=== PATIENT | female | born 1975 | race Caucasian/White ===

== ENCOUNTER 2023-02-25 21:50 | Outpatient (REF) | payer BC, SELFPAY ==
[2023-03-01 11:09] LABS: Age Gdln ACOG Testing Note (.); HPV Aptima Negative (Negative); IGP, Aptima HPV, rfx 16/18,45 Note (.)
== END 2023-02-25 21:51 | disposition home or self-care (01) ==
LOC: LAB 21:50
PROVIDERS: Visit Provider Obstetrics & Gynecology
DX: Z01.419 Encounter for gynecological examination (general) (routine) without abnormal findings (principal)
CPT/HCPCS: 87624; G0145

== ENCOUNTER 2023-02-26 11:38 | Outpatient (OUT) | payer BC, SELFPAY ==
[2023-02-26 12:06] LABS: Basophils Absolute Auto 0.1 10^3/uL (0.0-0.1); Basophils Percent Auto 0.8 % (0.2-2.0); Eosinophils Absolute Auto 0.2 10^3/uL (0.0-0.7); Eosinophils Percent Auto 2.4 % (0.9-7.0); Hematocrit 43.3 % (36.0-48.0); Hemoglobin 14.4 g/dL (12.0-16.0); Immature Granulocytes Abs Auto 0.03 10^3/uL (0.00-0.03); Immature Granulocytes Pct Auto 0.3 % (0.0-0.5); Lymphocytes Percent Auto 22.4 % (20.5-60.0); Mean Corpuscular HGB Conc 33.3 g/dL (29.9-35.2); Mean Corpuscular Hemoglobin 30.8 pg (26.7-34.0); Mean Corpuscular Volume 92.5 fL (81.0-99.0); Mean Platelet Volume 9.8 fL (9.5-13.5); Monocytes Absolute Auto 0.6 10^3/uL (0.3-0.8); Monocytes Percent Auto 6.6 % (1.7-12.0); Neutrophils Absolute Auto 5.9 10^3/uL (1.4-6.5); Neutrophils Percent Auto 67.5 % (43.0-75.0); Platelet Count 348 10^3/uL (150-450); Red Blood Count 4.68 10^6/uL (4.20-5.40); Red Cell Distribution Width 12.9 % (11.0-15.0); White Blood Count 8.8 10^3/uL (4.0-11.0)
[2023-02-26 12:30] LABS: Free T4 0.88 ng/dL (0.76-1.46)
[2023-02-27 04:16] LABS: FSH 71.6 mIU/mL (.)
== END 2023-02-26 11:39 | disposition home or self-care (01) ==
PROVIDERS: PCP Nurse Practitioner; Visit Provider Obstetrics & Gynecology
DX: E34.9 Endocrine disorder, unspecified (principal)
CPT/HCPCS: 36415; 83001; 84439; 84443; 85025

== ENCOUNTER 2023-03-05 09:39 | Outpatient (OUT) | payer BC, SELFPAY ==
--- NOTE | 2023-03-05 09:46 | MM_ITS ---
Patient: ROBER RAHMAN Exam Date: 03/05/2023 : 1975 Gender:F Ordering : DR Dano Henriquez . Admission #: [id number] Family : PARMINDER GABRIEL Order #: [id number] CLICK HERE TO VIEW EXAM RADIOLOGY REPORT PROCEDURE: MM TOMOSYNTHESIS SCREENING BI COMPARISON: MG MAMM SCREEN 3D ASHU CAD, 06/28/2021. MG MAMM SCREEN ASHU W CAD, 03/10/2020. MG MAMM RT DIAG W CAD, 05/08/2017. MG MAMM SCREEN ASHU W CAD, 09/19/2016. INDICATIONS: Screening mammogram Z12.31 Calculator Name NCI Breast Cancer Risk Assessment Tool 5 Year Breast Cancer Risk 1.10% Lifetime Breast Cancer Risk 11.40% Personal Breast Cancer No Personal Ovarian Cancer No Treatments None Family Cancers Aunt-paternal with breast cancer at age ~70. LOCATION: [facility] BREAST COMPOSITION: Scattered areas fibroglandular density. FINDINGS: DIAGNOSTIC CATEGORY 1--NEGATIVE. RIGHT BREAST: No significant suspicious finding. No significant change has occurred. LEFT BREAST: No significant suspicious finding. No significant change has occurred. RECOMMENDATIONS: ROUTINE MAMMOGRAM AND CLINICAL EVALUATION IN 12 MONTHS. PLEASE NOTE: A NORMAL MAMMOGRAM DOES NOT EXCLUDE THE POSSIBILITY OF BREAST CANCER. A CLINICALLY SUSPICIOUS PALPABLE LUMP SHOULD BE BIOPSIED. Dictated by: Nick Vicente M.D. on 03/05/2023 at 16:12 Approved by: Nick Vicente M.D. on 03/05/2023 at 16:14
--- NOTE | 2023-03-05 09:47 | US_ITS ---
The [address] [address] Patient Name: ROBER RAHMAN MRN: [id number] date: 1975 Sex: F Assigned Patient Location: US Current Patient Location: Accession/Order Number: [id number] Exam Date: 03/05/2023 09:48 Report Date: 03/05/2023 11:20 At the request of: ASUNCION SANDOVAL Procedure: US pelvis w/ transvaginal EXAM: US pelvis w/ transvaginal HISTORY: Premature menopause E28.319 COMPARISON: None. TECHNIQUE: Real-time transabdominal and transvaginal imaging of the pelvis. Findings: The uterus measures 5.3 x 4.1 x 2.6 cm and is retroverted. The parenchyma is heterogeneous. No focal intrahepatic mass. The endometrium measures 0.3 cm thick. No fluid within the endometrial canal. Small endometrial calcification. The bilateral ovaries are not visualized due to overlying bowel gas. No adnexal mass or free pelvic fluid. US/US pelvis w/ transvaginal IMPRESSION: 1. Small endometrial calcification is nonspecific but may relate to prior infection or inflammation. 2. Nonvisualization of the bilateral ovaries. Electronically authenticated by: TABATHA GONSALVES Date: 03/05/2023 11:20
== END 2023-03-05 09:40 | disposition home or self-care (01) ==
LOC: US 09:39
PROVIDERS: PCP Nurse Practitioner; Visit Provider Obstetrics & Gynecology
DX: E28.319 Asymptomatic premature menopause (principal); Z12.31 Encounter for screening mammogram for malignant neoplasm of breast; Z80.3 Family history of malignant neoplasm of breast
CPT/HCPCS: 76830; 76856; 77063; 77067

== ENCOUNTER 2024-06-18 20:37 | Outpatient (REF) | payer BC, SELFPAY | END 2024-06-18 20:38 | disposition home or self-care (01) | LOC: LAB 20:37 | PROVIDERS: PCP Nurse Practitioner; Visit Provider Physician Assistant | DX: Z01.419 Encounter for gynecological examination (general) (routine) without abnormal findings (principal) | CPT/HCPCS: 87624; 88175 ==

== ENCOUNTER 2024-09-11 08:01 | Outpatient (OUT) | payer BC, SELFPAY ==
--- NOTE | 2024-09-11 | MM_ITS ---
Patient Name: ROBER RAHMAN MR#: [id number] : 1975 Exam Date: 09/11/2024 Ordering Doctor: ZACKARY Stiles . RADIOLOGY REPORT PROCEDURE: MM TOMOSYNTHESIS SCREENING BI COMPARISON: MM TOMOSYNTHESIS SCREENING BI, 03/05/2023. MG MAMM SCREEN 3D ASHU CAD, 06/28/2021. MG MAMM SCREEN ASHU W CAD, 03/10/2020. MG MAMM SCREEN ASHU W CAD, 09/19/2016. INDICATIONS: screen for breast cancer Calculator Name NCI Breast Cancer Risk Assessment Tool 5 Year Breast Cancer Risk 1.20% Lifetime Breast Cancer Risk 11.10% Personal Breast Cancer No Personal Ovarian Cancer No Treatments None Family Cancers Aunt-paternal with breast cancer at age ~70. LOCATION: [facility] BREAST COMPOSITION: There are scattered areas of fibroglandular density. FINDINGS: DIAGNOSTIC CATEGORY 1--NEGATIVE. RIGHT BREAST: No significant suspicious finding. LEFT BREAST: No significant suspicious finding. RECOMMENDATIONS: ROUTINE MAMMOGRAM AND CLINICAL EVALUATION IN 12 MONTHS. PLEASE NOTE: A NORMAL MAMMOGRAM DOES NOT EXCLUDE THE POSSIBILITY OF BREAST CANCER. A CLINICALLY SUSPICIOUS PALPABLE LUMP SHOULD BE BIOPSIED. Dictated by: Be Webber DO on 09/11/2024 at 15:47 Approved by: Be Webber DO on 09/11/2024 at 15:51
--- OUTSIDE RECORDS SUMMARY | 2024-09-11 08:08 | XMS_ITS | CCD ---
Author Organization [facility] Care Team Providers Care Cinder Worker Name Role Phone DR ROSEMARIE MAGDALENO Admitting Unavailable STEFANIA, DR CANDI Fisher Primary Care Unavailable RASTA, DR [place] Attending Unavailable RASTA, DR [place] Consulting Unavailable ZIIVETT, DR NICK Erickson Consulting Unavailable STEFANIA, DR CANDI Fisher Primary Care Unavailable RASTA, DR [place] Attending Unavailable RASTA, DR [place] Consulting Unavailable RASTA, DR [place] Admitting Unavailable Bhakti Crocker Unavailable Brooklyn Fischer Unavailable JANNET Fischer Attending Provider NO FAMILY, PHYSICIAN Primary Care Provider Unava ilable Brooklyn Fischer Attending Unavailable Brooklyn Fischer Admitting Unavailable NO FAMILY, PHYSICIAN Primary Care Unavailable Bhakti Crocker Attending Unavailable Bhakti Crocker Admitting Unavailable PARMINDER GABRIEL Attending Unavailable JENA GABRIELERIE J Referring Unavailable GABRIEL, PARMINDER J Primary Care Unavailable PARMINDER GABRIEL Attending Unavailable JENA GABRIELERIE J Referring Unavailable GABRIEL, PARMINDER J Primary Care Unavailable GABRIEL, PARMINDER Referring Unavailable GABRIEL, PARMINDER Primary Care Unavailable Unavailable Primary Care Provider UnavailORTEGA Simon Attending Unavailable ORTEGA MANZANARES Attending Unavailable VIDHI LOJA Attending Unavailable Allergies Allergy Classification Reported Allergen(s) Allergy Type Date of Onset Reaction(s) Facility (2 sources) penicillAMINE Drug Allergy [place] Other (6 sources) Penicillin; Translations: [PENICILLIN G] Drug Allergy 3 [facility] Medications Current Medications Medication Drug Class(es) Dates Sig (Normalized) Sig (Original) citalopram 40 mg oral tablet (5 sources) Serotonin Reuptake Inhibitor Start: 12-26-2022 take 1 tablet by mouth in the morning citalopram (CeleXA) 40 MG tablet Take 40 mg by mouth in the morning. 12/26/2022 Active take 0.5 tablet by m outh every twenty-four hours CeleXA 40 MG 0.5 tablet Orally Once a day Active nitrofurantoin, macrocrystals 25 mg / nitrofurantoin, monohydrate 75 mg oral capsule (2 sources) Nitrofuran Antibacterial Start: 03-18-2022 take 1 capsule by mouth every twelve hours Macrobid 100 MG 1 capsule with food Orally every 12 hrs for 7 days Mar, Active Start: 04-09-2021 take 1 capsule by mo uth every twelve hours Macrobid 100 MG 1 cap(s) Orally bid for 5 day(s) Apr, Active phenazopyridine hydrochloride 200 mg oral tablet (2 sources) Start: 03-18-2022 take 1 tablet by mouth every eight hours Pyridium 200 MG 1 tablet after meals Orally Three times a day for 2 day(s) Mar, Active Start: 04-09-2021 take 1 tablet by loly every eight hours Pyridium 200 MG 1 tablet after meals Orally Three times a day for 2 day(s) Apr, Active triamcinolone acetonide 1 mg/ml topical cream (4 sources) Corticosteroid Start: 10-31-2023 triamcinolone (Kenalog) 0.1 % cream Indications: Hypersensitivity reaction, initial encounter Apply to affected areas, up to twice a day when flared, do not use one the face, groin, or underarms, 30 day supply 80 g 11 10/31/2023 Active Problems Active Problems Problem Classification Problem Date Documented Date Episodic/Chronic Anxiety disorders (3 sources) Panic disorder [episodic paroxysmal anxiety]; Translations: [Anxiety disorder, unspecified] Onset: 07-09-2023 Chronic Immunizations and screening for infectious disease (1 source) Encounter for screening for human papillomavirus (HPV); Translations: [ENC SCREENING HUMAN PAPILLOMAVIRUS] Onset: 06-10-2021 Episodic Mood disorders (1 source) Mood disorders; Translations: [Depression, unspecified] Onset: 07-09-2023 Other screening for suspected conditions (not mental disorders or infectious disease) (10 sources) Encounter for screening mammogram for malignant neoplasm of breast; Translations: [Encounter for screening for malignant neoplasm of cervix] Onset: 06-06-2021 Episodic Residual codes; unclassified (1 source) Family history of malignant neoplasm of breast; Translations: [FAMILY HX MALIG NEOPLASM OF BREAST] Onset: 07-06-2021 Episodic Unclassified (1 source) R30.0 - Dysuria; Translations: [R30.0 - Dysuria] Onset: 04-09-2021 Unclassified (1 source) Annual Exam Onset: 03-10-2024 Urinary tract infections (3 sources) Urinary tract infection, site not specified; Translations: [Acute cystitis with hematuria] Onset: 04-09-2021 Resolved: 03-18-2022 Episodic Past or Other Problems Problem Classification Problem Date Documented Da te Episodic/Chronic Genitourinary symptoms and ill-defined conditions (3 sources) Dysuria; Translations: [Hematuria, unspecified] Onset: 04-09-2021 Resolved: 03-18-2022 Episodic Mycoses (1 source) Candidiasis of skin and nail; Translations: [Candidiasis of skin and nail] Onset: 07-09-2023 Episodic Results Test Name Value Interpretation Reference Range Facility IGP,APTIMA HPV,AGE GDLNon AGE GDLN ACOG TESTING Note . [facility] Comment on above: TESTS RESULT FLAG UN ITS REF RANGE LAB Clinician Provided Cytology Information Source.............Cervix No. of containers..01 ThinPrep Vial Age Algo ACOG Aisha... 30 01 FLAG LEGEND: L-Low Normal,H-High Normal,LL-Alert Low,HH-Alert High <-Panic Low,>-Panic High,A-Abnormal,AA-Critical Abnormal Performed at: 01 =[address] [place] [address] Kathryn Howe MD, HPV APTIMA Negative Negative [facility] Comment on above: This nucleic acid am plification test detects fourteen high- risk HPV types (16,18,31,33,35,39,45,51,52,56,58,59,66,68) without differentiation. Performed at: =[facility], [place] [id number] Delivery Architect: Kathryn Howe MD, Phone: [phone] Performed at: [address] [id number] Delivery Architect: Pacheco Mariano PhD, Phone: [phone] IGP, APTIMA HPV, RFX 16/18,45 Note . [facility] Comment on above: TESTS RESULT FLAG UN ITS REF RANGE LAB DIAGNOSIS: 02 NEGATIVE FOR INTRAEPITHELIAL LESION OR MALIGNANCY. CELLULAR CHANGES ASSOCIATED WITH ATROPHY ARE PRESENT. Specimen adequacy: 02 Satisfactory for evaluation. Endocervical component may not be distinguished in cases of atrophy. Performed by: 02 Maura Moncada, [employer]y Employee (ASCP) . 02 Note: Note 03 The Pap smear is a screening test designed to aid in the detection of premalignant and malignant conditions of the uterine cervix. It is not a diagnostic procedure and should not be used as the sole means of detecting cervical cancer. Both false-positive and false-negative reports do occur. Test Methodology: Note 03 This liquid based ThinPrep(R) pap test was screened with the use of an image guided system. HPV Genotype Reflex Note 02 Criteria not met, HPV Genotype not performed. FLAG LEGEND: L-Low Normal,H-High Normal,LL-Alert Low,HH-Alert High <-Panic Low,>-Panic High,A-Abnormal,AA-Critical Abnormal Performed at: [address] [facility] [address] [place] [address] [place] [address] Pacheco Mariano PhD, 03 [facility] [address] [address] Kathryn Howe MD, BRUSH-SPATULA CERVIX [facility] CBC AND AUTO DIFFon 03-10-20 24 ABSOLUTE BASOPHIL 0.1 X10E9/L Normal 0.0-0.2 [facility] Comment on above: Performed By: #### 2 4331-1, CBCA, HA1C, CMP #### [facility] ([id number]) [address] [address] ABSOLUTE NEUTROPHIL 5.4 X10E9/L Normal 1.5-6.6 [facility] Comment on above: Performed By: #### 2 4331-1, CBCA, HA1C, CMP #### [facility] ([id number]) [address] [address] Basophils/100 WBC (Bld) 0.9 % Normal [facility] Comment on above: Performed By: #### 2 4331-1, CBCA, HA1C, CMP #### [facility] ([id number]) [address] [place] [address] Eosinophils (Bld) [#/Vol] 0.3 10*3/uL Normal 0.0-0.4 [facility] Comment on above: Performed By: #### 2 4331-1, CBCA, HA1C, CMP #### [facility] ([id number]) [address] [address] Eosinophils/100 WBC (Bld) 3.3 % Normal [facility] Comment on above: Performed By: #### 2 4331-1, CBCA, HA1C, CMP #### [facility] ([id number]) [address] [address] [place] [address] Erythrocyte distribution width (RBC) [Ratio] 13.4 % Normal 11.5-15.0 [facility] Comment on above: Performed By: #### 2 4331-1, CBCA, HA1C, CMP #### [facility] ([id number]) [address] [address] Hematocrit (Bld) [Volume fraction] 43.2 % Normal 35-47 [facility] Comment on above: Performed By: #### 2 4331-1, CBCA, HA1C, CMP #### [facility] ([id number]) [address] [address] Hemoglobin (Bld) [Mass/Vol] 14.9 g/dL Normal 11.7-15.5 [facility] Comment on above: Performed By: #### 2 4331-1, CBCA, HA1C, CMP #### [facility] ([id number]) [address] [address] Lymphocytes (Bld) [#/Vol] 2.5 10*3/uL Normal 1.0-3.5 [facility] Comment on above: Performed By: #### 2 4331-1, CBCA, HA1C, CMP #### [facility] ([id number]) [address] [place] [address] Lymphocytes/100 WBC (Bld) 27.9 % Normal [facility] Comment on above: Performed By: #### 2 4331-1, CBCA, HA1C, CMP #### [facility] ([id number]) [address], [address] [place] [address] MCH (RBC) [Entitic mass] 31.5 pg Normal 27-34 [facility] Comment on above: Performed By: #### 2 4331-1, CBCA, HA1C, CMP #### [facility] ([id number]) [address] [place] [address] MCHC (RBC) [Mass/Vol] 34.4 g/dL Normal 32-36 [facility] Comment on above: Performed By: #### 2 4331-1, CBCA, HA1C, CMP #### [facility] ([id number]) [address] [place] [address] MCV (RBC) [Entitic vol] 92 fL Normal 80-100 [facility] Comment on above: Performed By: #### 2 4331-1, CBCA, HA1C, CMP #### [facility] ([id number]) [address] [place] [address] Monocytes (Bld) [#/Vol] 0.5 10*3/uL Normal 0-0.9 [facility] Comment on above: Performed By: #### 2 4331-1, CBCA, HA1C, CMP #### [facility] ([id number]) [address] [place] [address] Monocytes/100 WBC (Bld) 6.2 % Normal [facility] Comment on above: Performed By: #### 2 4331-1, CBCA, HA1C, CMP #### [facility] ([id number]) [address] [place] [address] Neutrophils/100 WBC (Bld) 61.7 % Normal [facility] Comment on above: Performed By: #### 2 4331-1, CBCA, HA1C, CMP #### [facility] ([id number]) [address] [place] [address] Platelet mean volume (Bld) [Entitic vol] 8.4 fL Normal 7-12 [facility] Comment on above: Performed By: #### 2 4331-1, CBCA, HA1C, CMP #### [facility] ([id number]) [address] [facility] [address] [place] [address] Platelets (Bld) [#/Vol] 336 10*3/uL Normal 150-450 [facility] Comment on above: Performed By: #### 2 4331-1, CBCA, HA1C, CMP #### [facility] ([id number]) [address] [place] [address] RBC COUNT 4.72 X10E12/L Normal 3.80-5.20 [facility] Comment on above: Performed By: #### 2 4331-1, CBCA, HA1C, CMP #### [facility] ([id number]) [address] [place] [address] WBC (Bld) [#/Vol] 8.8 10*3/uL Normal 4.0-11.0 [facility] Comment on above: Performed By: #### 2 4331-1, CBCA, HA1C, CMP #### [facility] ([id number]) [address] [place] [address] COMPREHENSIVE METABOLIC PANE [place] 03-10-2024 Albumin [Mass/Vol] 4.6 g/dL Normal 3.2-5.3 [facility] Comment on above: Performed By: #### 2 4331-1, CBCA, HA1C, CMP #### [facility] ([id number]) [address] [place] [address] ALP [Catalytic activity/Vol] 94 U/L Normal 39-130 [facility] Comment on above: Performed By: #### 2 4331-1, CBCA, HA1C, CMP #### [facility] ([id number]) [address] [place] [address] ALT [Catalytic activity/Vol] 20 U/L Normal 0-31 [facility] Comment on above: Performed By: #### 2 4331-1, CBCA, HA1C, CMP #### [facility] ([id number]) [address] [place] [address] Anion gap [Moles/Vol] 13 mmol/L Normal 5-15 [facility] Comment on above: Performed By: #### 2 4331-1, CBCA, HA1C, CMP #### [facility] ([id number]) [address] [place] [address] AST [Catalytic activity/Vol] 18 U/L Normal 0-41 [facility] Comment on above: Performed By: #### 2 4331-1, CBCA, HA1C, CMP #### [facility] ([id number]) [address] [place] [address] Bilirubin [Mass/Vol] 0.5 mg/dL Normal 0.3-1.2 [facility] Comment on above: Performed By: #### 2 4331-1, CBCA, HA1C, CMP #### [facility] ([id number]) [address] [place] [address] Calcium [Mass/Vol] 9.6 mg/dL Normal 8.5-10.5 [facility] Comment on above: Performed By: #### 2 4331-1, CBCA, HA1C, CMP #### [facility] ([id number]) [address] [place] [address] Chloride [Moles/Vol] 105 mmol/L Normal 98-109 [facility] Comment on above: Performed By: #### 2 4331-1, CBCA, HA1C, CMP #### [facility] ([id number]) [address] [address] [place] [address] CO2 [Moles/Vol] 21 mmol/L Low 22-32 [facility] Comment on above: Performed By: #### 2 4331-1, CBCA, HA1C, CMP #### [facility] ([id number]) [address] [address] Creatinine [Mass/Vol] 0.65 mg/dL Normal 0.40-1.00 [facility] Comment on above: Result Comment: METH OD TRACEABLE TO IDMS STANDARD Performed By: #### 2 4331-1, CBCA, HA1C, CMP #### [facility] ([id number]) [address] [address] [place] [address] eGFR (CKD-EPI) NON-RACE DEPENDENT >90 Normal >59 [facility] Comment on above: Result Comment: Reported eGFR is based on the CKD-EPI 2020 equation that does not use a race coefficient. Performed By: #### 2 4331-1, CBCA, HA1C, CMP #### [facility] ([id number]) [address] [address] [place] [address] Glucose [Mass/Vol] 93 mg/dL Normal 65-99 [facility] Comment on above: Performed By: #### 2 4331-1, CBCA, HA1C, CMP #### [facility] ([id number]) [address] [address] [place] [address] Potassium [Moles/Vol] 3.8 mmol/L Normal 3.5-5.0 [facility] Comment on above: Performed By: #### 2 4331-1, CBCA, HA1C, CMP #### [facility] ([id number]) [address] [place] [address] Protein [Mass/Vol] 7.5 g/dL Normal 6.0-8.0 [facility] Comment on above: Performed By: #### 2 4331-1, CBCA, HA1C, CMP #### [facility] ([id number]) [address] [place] [address] Sodium [Moles/Vol] 139 mmol/L Normal 134-146 [facility] Comment on above: Performed By: #### 2 4331-1, CBCA, HA1C, CMP #### [facility] ([id number]) [address] [facility] [address] [place] [address] Urea nitrogen [Mass/Vol] 8 mg/dL Normal 5-23 [facility] Comment on above: Performed By: #### 2 4331-1, CBCA, HA1C, CMP #### [facility] ([id number]) [address] [place] [address] HGB A1C (GLYCO-HGB)on 2023 Glucose [Mass/Vol] 114 mg/dL Normal [facility] Comment on above: Performed By: #### 2 4331-1, CBCA, HA1C, CMP #### [facility] ([id number]) [address] [place] [address] HbA1c (Bld) [Mass fraction] 5.6 % Normal 4.4-5.6 [facility] Comment on above: Result Comment: NOTE ADA Guidelines Result HgbA1c Normal : less than 5.7 % Prediabetes : 5.7 % to 6.4 % Diabetes : > 6.4 % Use with caution in patients with abnormal hemoglobin variants as the half-life of red blood cells and in vivo glycation rates are affected. Performed By: #### 2 4331-1, KEN HAMelani, CMP #### [facility] ([id number]) [address] [place] [address] Lipid 1996 panelon 4 Cholesterol [Mass/Vol] 224 mg/dL High 150-200 [facility] Comment on above: Performed By: #### 2 4331-1, CBCNatalia HA1C, CMP #### [facility] ([id number]) [address] [place] [address] Cholesterol in HDL [Mass/Vol] 60 mg/dL Normal >39 [facility] Comment on above: Result Comment: HDL <40 mg/dL - High Risk HDL > or = 40mg/dL- Desirable HDL >60 mg/dL - Negative Risk Performed By: #### 2 4331-1, KEN HAMelani, CMP #### [facility] ([id number]) [address] [place] [address] Cholesterol in LDL [Mass/Vol] 138 mg/dL High <130 [facility] Comment on above: Result Comment: LDL <100 mg/dL - Desirable LDL >160 mg/dL - High Risk Performed By: #### 2 4331-1, KEN HA1C, CMP #### [facility] ([id number]) [address] [place] [address] Cholesterol in VLDL [Mass/Vol] 26 mg/dL Normal 0-30 [facility] Comment on above: Performed By: #### 2 4331-1, CBCA, HA1C, CMP #### [facility] ([id number]) [address] [place] [address] CHOLESTEROL:HDL 3.7 Normal 1.0-5.0 [facility] Comment on above: Performed By: #### 2 4331-1, CBCA, HA1C, CMP #### [facility] ([id number]) [address] [place] [address] Triglyceride [Mass/Vol] 128 mg/dL Normal 27-150 [facility] Comment on above: Performed By: #### 2 4331-1, CBCA, HA1C, CMP #### [facility] ([id number]) [address] [place] [address] Urinalysis - AUTOMATEDon Appearance (U) CLOUDY [employer] Other Bilirubin Ql (U) Negative [employer] Other Color (U) YELLOW [employer] Other Glucose Ql (U) Negative [employer] Other Hemoglobin Ql (U) TRACE-INTACT [employer] Other Ketones Ql (U) Negative [employer] Other Leukocyte esterase Test strip Ql (U) LARGE [employer] Other Nitrite Ql (U) Negative [employer] Other pH (U) 7.0 [pH] [employer] Other Protein Ql (U) Negative [employer] Other Specific gravity (U) [Rel density] 1.025 [employer] Other Urobilinogen (U) [Mass/Vol] 0.2 mg/dL [employer] Other Urinalysis - AUTOMATED [employer] Other Urine Cultureon 03-18-2022 Bacteria identified Cx Nom (U) Reason for Exam Acute cystitis with hematuria Urine ORGANISM: Escherichia coli (O:ESCCOL) Tangent Count >100,000 Aerobic JUNIOR Charge (NUC86) ---- SUSCEPTIBILITY --- ORGANISM: O:ESCCOL ANTIBIOTIC INTERPRETATION JUNIOR Amikacin S <16 Ampicillin S <8 Ampicillin/Sulbactam S <8/4 Aztreonam S <4 Cefazolin S <2 Cefepime S <2 Ceftazidime S <1 Ceftazidime/Avibactam S <8 Ceftriaxone S <1 Ciprofloxacin S <1 Ertapenem S <0.5 Gentamicin S <4 Levofloxacin S <2 Meropenem S <1 Nitrofurantoin S <32 Piperacillin/Tazobact am S <16 Tetracycline S <4 Tigecycline S <2 Tobramycin S <4 Trimethoprim/Sulfamet hoxazole S <2/38 S = SUSCEPTIBLE I = INTERMEDIATE R = RESISTANT BLANK = DATA NOT AVAILABLE, OR DRUG NOT ADVISABLE OR TESTED R* = RESISTANCE DUE TO EXTENDED SPECTRUM BETA-LACTAMASES ESBL = EXTENDED SPECTRUM BETA-LACTAMASE TFG = THYMIDINE-DEPENDENT STRAIN GUNNER = BETA-LACTAMASE POSITIVE IB = INDUCIBLE BETA-LACTAMASE. APPEARS IN PLACE OF 'S' WITH SPECIES KNOWN TO POSSESS INDUCIBLE BETA-LACTAMASES. POTENTIALLY THEY MAY BECOME RESISTANT TO ALL B-LACTAM DRUGS. PERFORMED BY: [place] [address] PATHOLOGIST PUBLIC INFORMATION SPECIALIST ISIAH NAVA M.D. Normal [facility] Comment on above: Performed By: #### C UU #### [address] MG MAMM SCREEN 3D ASHU CADon 06-28-2021 MG MAMM SCREEN 3D ASHU CAD Patient: KARIN HINDS Exam Date: 06/28/2021 : 1975 Gender:F Ordering : DR ROSEMARIE MAGDALENO . Admission #: [id number] Family : Order #: [id number] CLICK HERE TO VIEW EXAM RADIOLOGY REPORT PROCEDURE: MAMMOGRAM SCREENING 3D BILATERAL CAD COMPARISON: MG MAMM SCREEN ASHU W CAD, 03/10/2020. MG MAMM RT DIAG W CAD, 05/08/2017. INDICATIONS: Screening mammography Calculator Name NCI Breast Cancer Risk Assessment Tool 5 Year Breast Cancer Risk 1.10% Lifetime Breast Cancer Risk 11.80% Personal Breast Cancer No Personal Ovarian Cancer No Treatments None Family Cancers Aunt-paternal with breast cancer at age 70. LOCATION: [facility] BREAST COMPOSITION: Scattered areas fibroglandular density. FINDINGS: DIAGNOSTIC CATEGORY 1--NEGATIVE. RIGHT BREAST: No significant suspicious finding. No significant change has occurred. LEFT BREAST: No significant suspicious finding. No significant change has occurred. RECOMMENDATIONS: ROUTINE MAMMOGRAM AND CLINICAL EVALUATION IN 12 MONTHS. PLEASE NOTE: A NORMAL MAMMOGRAM DOES NOT EXCLUDE THE POSSIBILITY OF BREAST CANCER. A CLINICALLY SUSPICIOUS PALPABLE LUMP SHOULD BE BIOPSIED. Dictated by: Nick Vicente M.D. on 06/28/2021 at 14:17 Approved by: Nick Vicente M.D. on 06/28/2021 at 14:19 Normal [facility] PAP ACOG PANEL 2: 30 to 65on 06-10-2021 . . Normal [facility] Comment on above: Result Comment: Perf ormed at: WB Performed By: #### 4 [id number] #### [facility] [address] [address] [address] Nicole Vazquez Age Gdln ACOG Testing 30-65 Normal [facility] Comment on above: Performed By: #### 4 [id number] #### [facility] [address] [address] [address] Nicole Vazquez DIAGNOSIS: Comment Normal [facility] Comment on above: Result Comment: NEGA TIVE FOR INTRAEPITHELIAL LESION OR MALIGNANCY. CELLULAR CHANGES ASSOCIATED WITH ATROPHY ARE PRESENT. Performed at: WB Performed By: #### 4 [id number] #### [facility] [address] [address] [address] Nicole Vazquez HPV Aptima Negative Normal Negative [facility] Comment on above: Result Comment: This nucleic acid amplification test detects fourteen high-risk HPV types (16,18,31,33,35,39,45,51,52,56,58,59,66,68) without differentiation. Performed at: =G Performed By: #### 4 [id number] #### [facility] [address] [place] [address] Dr. Nicole Vazquez Methodology: Comment Normal [facility] Comment on above: Result Comment: This liquid based ThinPrep(R) pap test was screened with the use of an image guided system. Performed at: WB Performed By: #### 4 [id number] #### [facility] [address] [place] [address] Dr. Nicole Vazquez Note: Comment Normal [facility] Comment on above: Result Comment: The Pap smear is a screening test designed to aid in the detection of premalignant and malignant conditions of the uterine cervix. It is not a diagnostic procedure and should not be used as the sole means of detecting cervical cancer. Both false-positive and false-negative reports do occur. . Performed at: WB Performed By: #### 4 [id number] #### [facility] [address] [place] [address] Dr. Nicole Vazquez Performed by: Comment Normal [facility] Comment on above: Result Comment: Elder Granda, [employer]cher[employer] Employee (ASCP) Performed at: WB Performed By: #### 4 [id number] #### [facility] [address] [place] [address] Dr. Nicole Vazquez Specimen adequacy: Comment Normal [facility] Comment on above: Result Comment: Sati sfactory for evaluation. Endocervical and/or squamous metaplastic cells (endocervical component) are present. Performed at: [facility] Performed By: #### [id number] #### [facility] [address] [place] [address] Dr. Nicole Vazquez Urinalysis - AUTOMATEDon Appearance (U) cloudy [employer] Other Bilirubin Ql (U) Negative [employer] Other Color (U) yellow [employer] Other Glucose Ql (U) Negative [employer] Other Hemoglobin Ql (U) moderate [employer] Other Ketones Ql (U) Negative [employer] Other Leukocyte esterase Test strip Ql (U) large [employer] Other Nitrite Ql (U) Negative [employer] Other pH (U) 6.0 [pH] [employer] Other Protein Ql (U) 100 [employer] Other Specific gravity (U) [Rel density] 1.005 [employer] Other Urobilinogen (U) [Mass/Vol] 0.2 mg/dL [employer] Other Urinalysis - AUTOMATED [employer] Other Urine Cultureon 04-09-2021 Urine Culture >100,000 [employer] Other Urine Culture <16 [employer] Other Urine Culture <8 [employer] Other Urine Culture <4 [employer] Other Urine Culture <2 [employer] Other Urine Culture <1 [employer] Other Urine Culture <0.5 [employer] Other Urine Culture <32 [employer] Other Urine Culture <2/38 [employer] Other Bacteria identified Cx Nom (U) Reason for Exam Dysuria Urine ORGANISM: Escherichia coli (O:ESCCOL) Tangent Count >100,000 Aerobic JUNIOR Charge (NUC86) ---- SUSCEPTIBILITY --- ORGANISM: O:ESCCOL ANTIBIOTIC INTERPRETATION JUNIOR Amikacin S <16 Ampicillin S <8 Ampicillin/Sulbactam S <8/4 Aztreonam S <4 Cefazolin S <2 Cefepime S <2 Ceftazidime S <1 Ceftazidime/Avibactam S <8 Ceftriaxone S <1 Ciprofloxacin S <1 Ertapenem S <0.5 Gentamicin S <4 Levofloxacin S <2 Meropenem S <1 Nitrofurantoin S <32 Piperacillin/Tazobact am S <16 Tetracycline S <4 Tigecycline S <2 Tobramycin S <4 Trimethoprim/Sulfamet hoxazole S <2/38 S = SUSCEPTIBLE I = INTERMEDIATE R = RESISTANT BLANK = DATA NOT AVAILABLE, OR DRUG NOT ADVISABLE OR TESTED R* = RESISTANCE DUE TO EXTENDED SPECTRUM BETA-LACTAMASES ESBL = EXTENDED SPECTRUM BETA-LACTAMASE TFG = THYMIDINE-DEPENDENT STRAIN GUNNER = BETA-LACTAMASE POSITIVE IB = INDUCIBLE BETA-LACTAMASE. APPEARS IN PLACE OF 'S' WITH SPECIES KNOWN TO POSSESS INDUCIBLE BETA-LACTAMASES. POTENTIALLY THEY MAY BECOME RESISTANT TO ALL B-LACTAM DRUGS. PERFORMED BY: [place] [address] PATHOLOGIST PUBLIC INFORMATION SPECIALIST ISIAH NAVA M.D. [facility] Comment on above: Performed By: #### C UU #### [address] Vital Signs Date Time Vital Sign Value Performing Clinician Facility 06-18-2024 09:07-0500 Body mass index (BMI) [Ratio] 38.91 kg/m2 Vidhi RAYMUNDO Work Phone: [facility] 06-18-2024 09:07-0500 Body weight 106.07 kg Vidhi RAYMUNDO Work Phone: [facility] 06-18-2024 09:07-0500 Diastolic blood pressure 82 mm[Hg] Vidhi RAYMUNDO Work Phone: [facility] 06-18-2024 09:07-0500 Systolic blood pressure 130 mm[Hg] Vidhi RAYMUNDO Work Phone: [facility] 09-11-2022 10:15-0400 Body height 162.56 cm Brooklyn Fischer Other [employer] Other 03-18-2022 10:15-0400 Body mass index (BMI) [Ratio] 40.33 kg/m2 Brooklyn Fischer Other [employer] Other 03-18-2022 10:15-0400 Body temperature 99.7 [degF] Brooklyn Fischer Other [employer] Other 03-18-2022 10:15-0400 Body weight 106.6 kg Brooklyn Fischer Other [employer] Other 03-18-2022 10:15-0400 Diastolic blood pressure 67 mm[Hg] Brooklyn Fischer Other [employer] Other 03-18-2022 10:15-0400 Respiratory rate 18 /min Brooklyn Fischer Other [employer] Other 03-18-2022 10:15-0400 SaO2% (BldA) [Mass fraction] 97 % Brooklyn Fischer Other [employer] Other 03-18-2022 10:15-0400 Systolic blood pressure 135 mm[Hg] Brooklyn Fischer Other [employer] Other 04-09-2021 10:50-0400 Body height 162.56 cm Bhakti Crocker Other [employer] Other 04-09-2021 10:50-0400 Body mass index (BMI) [Ratio] 37.76 kg/m2 Bhakti Crocker Other [employer] Other 04-09-2021 10:50-0400 Body temperature 97.9 [degF] Bhakti Crocker Other [employer] Other 04-09-2021 10:50-0400 Body weight 99.79 kg Bhakti Crocker Other [employer] Other 04-09-2021 10:50-0400 Diastolic blood pressure 90 mm[Hg] Bhakti Crocker Other [employer] Other 04-09-2021 10:50-0400 Respiratory rate 18 /min Bhakti Crocker Other [employer] Other 04-09-2021 10:50-0400 SaO2% (BldA) [Mass fraction] 98 % Bhakti Crocker Other [employer] Other 04-09-2021 10:50-0400 Systolic blood pressure 141 mm[Hg] Bhakti Crocker Other [employer] Other Encounters Encounter Date Encounter Type Care Provider Facility Start: 06-18-2024 End: 06-18-2024 Bamboo flowsheet Vidhi RAYMUNDO Work Phone: [facility] Start: 06-18-2024 End: 06-25-2024 Bamboo flowsheet Vidhi RAYMUNDO Work Phone: [facility] Start: 06-18-2024 End: 06-25-2024 Clinisync Result Encounter Vidhi RAYMUNDO Work Phone: [facility] Unsolicited Start: 06-18-2024 End: 06-18-2024 Patient encounter procedure Vidhi RAYMUNDO Work Phone: [facility] Work Phone: Start: 06-18-2024 End: 06-18-2024 Periodic preventive med est patient 40-64yrs Vidhi Loja PA Work Phone: [facility] Comment on above: Well woman exam with routine gynecological exam; Breast cancer screening by mammogram Start: 06-18-2024 End: 06-18-2024 ambulatory VIDHI LOJA Not Available Start: 03-10-2024 End: 03-10-2024 ambulatory [facility] Start: 03-10-2024 Encounter for genera l adult medical examination without abnormal findings [facility] Start: 03-10-2024 End: 03-10-2024 ambulatory [facility] Start: 03-10-2024 Encounter for genera l adult medical examination without abnormal findings [facility] Start: 10-31-2023 End: 10-31-2023 ambulatory ORTEGA A FELTER Not Available Start: 08-23-2023 End: 08-23-2023 ambulatory ORTEGA A FELTER Not Available Start: 07-09-2023 End: 07-09-2023 ambulatory [facility] Start: 03-18-2022 Office outpatient vi sit 15 minutes Brooklyn Fischer [facility] Start: 03-18-2022 End: 03-18-2022 ambulatory Brooklyn Fischer [employer] Other Start: 03-18-2022 End: 03-18-2022 Departed [employer] MEDICAL RECORD LIBRARIAN-C Brooklyn Fischer Work Phone: [facility] [place] Start: 06-28-2021 End: 06-29-[address] ROSEMARIE MAGDALENO Facility:[facility] Start: 06-06-2021 End: 06-06-[address] CANDI AGUIAR Facility:[facility] Start: 04-09-2021 Office outpatient vi sit 25 minutes Bhakti Crocker [facility] Start: 04-09-2021 End: 04-09-2021 ambulatory Bhakti Crocker Facility:[facility] Procedures Date Procedure Procedure Detail Performing Clinician Start: 06-18-2024 IGP,APTIMA HPV,AGE GDLN Vidhi RAYMUNDO Work Phone: Start: 04-09-2021 Piperacillin/tazobactam Bhakti Crocker Other Plan of Treatment Date Care Activity Detail Author Start: 06-21-2025 End: 06-21-2025 Patient encounter procedure 06/21/2025 9:00 AM EST Office Visit [facility] [address] [address] Vidhi Loja PA [address] [place] [address] [facility] Start: 06-18-2024 End: 08-19-2025 MG Breast - bilateral Screening Bilateral screening mammogram Imaging Routine Breast cancer screening by mammogram Expected: 06/18/2024 (Approximate), Expires: 08/19/2025 [facility] Work Phone: Comment on above: Expected: 06/18/2024 (Approximate), Expires: 08/19/2025 Start: 06-18-2024 End: 06-18-2024 Patient encounter procedure 06/18/2024 9:00 AM EST Office Visit [facility] [address] [place] [address] Vidhi Loja PA [address] [place] [address] Arrived [facility] Comment on above: Arrived Bacteria identified in Urine by Culture [facility] THIN PREP TIS PAP AN D HR HPV DNA THIN PREP TIS PAP AND HR HPV DNA Pathology and Cytology Routine Well woman exam with routine gynecological exam Ordered: 06/18/2024 [facility] Comment on above: Ordered: 06/18/2024 Payers Date Payer Category Payer Self-pay [id number] 2017 [employer] [id number] 1974 Unknown [id number] .2.593 1974 Unknown [id number] [id number] .2.593 1974 Unknown [id number] [id number] .2.1286 1974 Unknown [id number] [id number] .2.1286 1974 Unknown [id number] [id number] .2.1286 1974 Unknown [id number] [id number] .2.1259 1974 Unknown [id number] [id number] .2.9 1974 Unknown [id number] [id number] .2.1259 1959 Unknown [id number] Unknown [id number] [id number] .2.531 Unknown [id number] .2.531 Social History Date Type Detail Facility Unknown if ever smoked Stephen [employer] Other Start: 10-31-2023 Sex Assigned At N [facility] [employer] Other Start: 1975 Sex Assigned At Female F [facility] Start: 02-20-2023 Tobacco smoking stat NHIS Never smoked tobacco [facility] Start: 02-20-2023 Tobacco use and exposure Smokeless tobacco non-user [facility] Start: 10-31-2023 End: 06-18-2024 Alcoholic beverage intake Lifetime non-drinker (finding) [facility] Start: 10-31-2023 History of Social function [facility] Start: 02-20-2023 Alcohol Comment Caffeine: 2-3 cups/day mountain dew and pepsi [facility] Start: 1975 Sex assigned at Not on file N [facility] History of Present illness Narrative 06-18-2024 ZACKARY Mortensen - 06/18/2024 9:00 AM EST Note Date & Type Note Facility 06-18-2024 History of Presen t illness Narrative Reason for Appointment: Patient ID: Karin Hinds is a 48 y.o. female who presents for Well Women Visit Patient presents today for Annual Exam. 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 Breast asymmetry in female Breast cancer screening by mammogram Depression ([facility] Depression screening Encounter for gynecological examination (general) (routine) without abnormal findings Obesity (BMI 30-39.9) HISTORY PAST MEDICAL HISTORY SOCIAL HISTORY Past Medical History: Diagnosis Date Anxiety 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 Breast asymmetry in female Breast cancer screening by mammogram Depression ([facility]) Depression screening Encounter for gynecological examination (general) (routine) without abnormal findings Obesity (BMI 30-39.9) Social History Tobacco Use Smoking status: Never Smokeless tobacco: Never Substance Use Topics Alcohol use: Never Comment: Caffeine: 2-3 cups/day mountain dew and pepsi Drug use: Never FAMILY HISTORY Family History Problem Relation Name Age of Onset Hypertension Mother Diabetes Mother Heart failure Mother Diabetes Father Hypertension Father Heart disease Father Mental illness Father Arthritis Father Cancer Maternal Grandmother Cancer Paternal Grandmother Heart disease Other Paternal / maternal side Diabetes Other Paternal / maternal side SURGICAL HISTORY Past Surgical History: Procedure Laterality Date SECTION, LOW TRANSVERSE 2005 REVIEW OF SYSTEMS Review of Systems: Review of Systems Constitutional: Negative. HENT: Negative. Eyes: Negative. Respiratory: Negative. Cardiovascular: Negative. Gastrointestinal: Negative. Genitourinary: Negative. Musculoskeletal: Negative. Skin: Negative. Neurological: Negative. All other systems reviewed and are negative. Hematological: Negative. Endocrine: Negative. Allergic/Immunologic: Negative. OBJECTIVE Objective: Physical Exam Constitutional: Appearance: Normal appearance. Genitourinary: Genitourinary Comments: Yeast rash under bilateral breast. Patient to use Nystatin Cream. Right Adnexa: not tender and no mass present. Left Adnexa: not tender and no mass present. No cervical discharge. Breasts: Breasts are soft. Right: Normal. Left: Normal. HENT: Head: Normocephalic. Nose: Nose normal. Mouth/Throat: Mouth: Mucous membranes are moist. Cardiovascular: Rate and Rhythm: Normal rate. Pulmonary: Effort: Pulmonary effort is normal. Abdominal: General: Bowel sounds are normal. Palpations: Abdomen is soft. Musculoskeletal: General: Normal range of motion. Cervical back: Normal range of motion. Neurological: General: No focal deficit present. Mental Status: She is alert. Skin: General: Skin is warm and dry. Psychiatric: Mood and Affect: Mood normal. Vitals and nursing note reviewed. Exam conducted with a transfer worker present. Vitals: Estimated body mass index is 38.91 kg/m as calculated from the following: Height as of 12/22/20: 5' 5 . Weight as of this encounter: 233 lb 13.6 oz. BP: 130/82 No LMP recorded. Patient is postmenopausal. ASSESSMENT & PLAN ICD-10-CM 1. Well woman exam with routine gynecological exam Z01.419 THIN PREP TIS PAP AND HR HPV DNA 2. Breast cancer screening by mammogram Z12.31 Bilateral screening mammogram Bilateral screening mammogram Annual: Patient presents today for an annual exam. Patient states she is doing well and has no complaints. Pap was obtained without difficulty and patient given mammogram order to have scheduled/obtained. Orders Placed This Encounter Procedures Bilateral screening mammogram Follow Up: Patient is to return in one year for annual unless needed otherwise. Documented by Sapna Islas LPN on behalf of: ZACKARY Mortensen documented in this encounter [facility] Evaluation note 03-18-2022 Note Date & Type Note Facility 03-18-2022 Evaluation note Encounter Date Diagnosis Assessment Notes Mar, Dysuria (ICD-10 - R30.0) Mar, Acute cystitis with hematuria (ICD-10 - N30.01) Take medication as directed. Urine analysis shows abnormalities today in office. Urine culture will be sent to lab. Will call with results if resistance present to antibiotic. Increase fluid intake. Follow hygiene guidelines such as wiping front to back, avoid using perfumed lotions, bath beads, bubble bath. Prevention tips inlcude urinating after sexual intercourse. Follow up with primary care provider or solar energy system installer helper if no improvement of symptoms. [employer] Other Evaluation note 04-09-2021 Note Date & Type Note Facility 04-09-2021 Evaluation note Encounter Date Diagnosis Assessment Notes Apr, Dysuria (ICD-10 - R30.0) Apr, Urinary tract infection, site not specified (ICD-10 - N39.0) Plenty fluids, get plenty of rest. Take the Macrobid as prescribed until gone. Take the Pyridium as prescribed until gone. Follow-up with your family physician if no improvement in 2 to 3 days Apr, Hematuria, unspecified (ICD-10 - R31.9) [employer] Other Evaluation note Note Date & Type Note Facility Evaluation note No assessment information availa [facility] Work Phone: Evaluation note Note Date & Type Note Facility Evaluation note Diagnosis Well woman exam with routine gynecological exam Routine gynecological examination Breast cancer screening by mammogram documented in this encounter [facility] History general Narrative - Reported Note Date & Type Note Facility History general Narrative - Reported Type Surgical History C section x1 Hospitalization History see above [employer] Other History general Narrative - Reported Note Date & Type Note Facility History general Narrative - Reported Type Medical History ANXIETY Surgical History C section x1 Hospitalization History see above [employer] Other Summary Purpose Family History No Family History Records FoundNo Family History Records FoundNo Family History Records FoundNo Family History Records FoundNo Family History Records Found Advance Directives Advance Directive Response Recorded Date/ Time Advance Directives No December 13 7:03pm Chief Complaint and Reason for Visit Chief Complaint N30.01 Additional Source Comments INFORMATION SOURCE (unrecogn ized section and content) DATE CREATED AUTHOR 07/07/2021 [facility] DATE CREATED AUTHOR AUTHOR'S ORGANIZ ATION 04/03/2022 [facility] DATE CREATED AUTHOR AUTHOR'S ORGANIZ ATION 03/11/2024 [facility] DATE CREATED AUTHOR AUTHOR'S ORGANIZ ATION 03/12/2024 [facility] DATE CREATED AUTHOR AUTHOR'S ORGANIZ ATION 06/21/2024 [facility] dical Specialists EPIC REASON FOR VISIT (unrecogniz ed section and content) Reason Comments Well Women Visit Care Teams (unrecognized sec tion and content) Team Status: Inactive Member Role Status Dates JANNET Escobar Attending Provider Active PHYSICIAN NO FAMILY Primary Care Provider Active Team Status: Active Member Role Status Dates PHYSICIAN NO FAMILY Primary Care Provider Active Goals (unrecognized section and content) Goals may be documented in a n alternate section FOR RECORDS PERTAINING TO PATIENTS WHO ARE OR HAVE BEEN ENROLLED IN A CHEMICAL DEPENDENCY/SUBSTANCEABUSE PROGRAM, SOME INFORMATION MAY BE OMITTED. This clinical summary was aggregated from multiple sources. Caution should be exercised in using it in the provision of clinical care. This summary normalizes information from multiple sources, and as a consequence, information in this document may materially change the coding, format and clinical context of patient data. In addition, data may be omitted in some cases. CLINICAL DECISIONS SHOULD BE BASED ON THE PRIMARY CLINICAL RECORDS. [employer] provides no warranty or guarantee of the accuracy or completeness of information in this document.
== END 2024-09-11 08:02 | disposition home or self-care (01) ==
LOC: MAMMO 08:03
PROVIDERS: PCP Nurse Practitioner; Visit Provider Physician Assistant
DX: Z12.31 Encounter for screening mammogram for malignant neoplasm of breast (principal); Z80.3 Family history of malignant neoplasm of breast
CPT/HCPCS: 77063; 77067

== ENCOUNTER 2025-06-21 12:41 | Outpatient (REF) | payer BC, SELFPAY ==
[2025-06-23 10:08] LABS: Age Gdln ACOG Testing Note (.); IGP, Aptima HPV, rfx 16/18,45 Note (.)
== END 2025-06-21 12:42 | disposition home or self-care (01) ==
LOC: LAB 12:41
PROVIDERS: PCP Nurse Practitioner; Visit Provider Physician Assistant
DX: Z01.419 Encounter for gynecological examination (general) (routine) without abnormal findings (principal)
CPT/HCPCS: 88175